=== PATIENT | male | born 1995 | race Caucasian/White ===

== ENCOUNTER 2021-06-21 12:37 | Emergency (ER) | payer SELFPAY ==
[2021-06-21] MEDS ORDERED: Lidocaine 1% 10 ML MDV INJECT ONE (13:16)
--- NOTE | 2021-06-21 15:31 | EDM.PDOC ---
ED HPI GENERAL MEDICAL PROBLEM - General Chief Complaint: Laceration Stated Complaint: FINGER LAC Time Seen by Provider: 06/21/21 13:31 Source of Information: Reports: Patient History Limitations: Reports: No Limitations - History of Present Illness INITIAL COMMENTS - FREE TEXT/NARRATIVE: 26-year-old male presents the emergency department with complaints of laceration noted to his left index and middle finger. This occurred at approximately 11:00 today while he was at work. The patient states he fell and caught his hand on a metal object on the ground. Patient states his tetanus is up-to-date. Right Hand Pain Score (Numeric/FACES): 3 - Related Data Allergies Allergy/AdvReac Type Severity Reaction Status Date / Time No Known Allergies Allergy Verified 06/21/21 13:03 Home Meds: Home Meds cephALEXin [Keflex] 500 mg PO QID #40 cap 06/21/21 [Rx] Past Medical History - Past Health History Medical/Surgical History: Denies Medical/Surgical History Social & Family History - Tobacco Use Tobacco Use Status *Q: Current Every Day Tobacco User Years of Tobacco use: 1 Packs/Tins Daily: 0.5 - Caffeine Use Caffeine Use: Reports: Coffee, Energy Drinks, Soda - Alcohol Use Days Per Week of Alcohol Use: 2 Number of Drinks Per Day: 2 Total Drinks Per Week: 4 - Recreational Drug Use Recreational Drug Use: No ED ROS GENERAL - Review of Systems Review Of Systems: Comprehensive ROS is negative, except as noted in HPI. ED EXAM, SKIN/RASH Exam: See Below Exam Limited By: No Limitations General Appearance: Alert, WD/WN, No Apparent Distress Ears: Normal External Exam, Hearing Grossly Normal Nose: Normal Inspection Throat/Mouth: Normal Inspection, Normal Lips, Normal Voice, No Airway Compromise Head: Atraumatic Neck: Normal Inspection, Supple Respiratory/Chest: No Respiratory Distress, No Accessory Muscle Use Cardiovascular: Normal Peripheral Pulses, Regular Rate, Rhythm GI/Abdominal: No Distention (Male) Exam: Deferred Rectal (Males) Exam: Normal Exam Back Exam: Normal Inspection, Full Range of Motion Extremities: Normal Capillary Refill, Other (CMS is positive to both second and third digits on the left hand). No: Normal Inspection (Lacerations noted to left palmar aspect of second and third fingers middle phalanx), Normal Range of Motion (Decreased range of motion noted on third finger at the PIP joint) Neurological: Alert, Oriented, Normal Cognition Psychiatric: Normal Affect, Normal Mood Skin: Warm, Dry, Normal Color, No Rash. No: Intact (Lacerations noted to left second and third fingers on the palmar aspect in the mid phalanx) Location, Skin: Upper Extremity, Left Lymphatic: No Adenopathy ED SKIN PROCEDURES - Laceration/Wound Repair Left Digit - 2nd (Index) Appearance: Superficial, Other ([place]-shaped) Distal NVT: Neuro & Vascular Intact, No Tendon Injury Anesthetic Type: Local Local Anesthesia - Lidocaine (Xylocaine): 1% Plain Local Anesthetic Volume: 2cc Exploration/Debridement/Repair: Wound Explored Closed with: Sutures Lac/Wound length In cm: 3 Suture Size: 4-0 # of Sutures: 8 Suture Type: Nylon, Interrupted Left Digit - 3rd (Middle) Appearance: Superficial, Other ([place] shaped) Distal NVT: Neuro & Vascular Intact, No Tendon Injury, Other (Patient is unable to bend at the PIP joint) Local Anesthesia - Lidocaine (Xylocaine): 1% Plain Local Anesthetic Volume: 3cc Saline Irrigation (cc's): 10 Exploration/Debridement/Repair: Wound Explored, No Foreign Material Found Closed with: Sutures Lac/Wound length In cm: 4.5 Suture Size: 4-0 # of Sutures: 9 Suture Type: Nylon, Interrupted Course - Vital Signs Text/Narrative:: 26-year-old male with lacerations noted to his left index and middle finger. This happened about 11:00 this morning while at work. Index finger has an approximate 3 cm C-shaped laceration noted on the middle phalanx on the palmar aspect. CMS is positive and patient has full range of motion noted to that digit. Patient has an approximately 4-1/2 cm laceration which is C-shaped noted on the middle phalanx on the palmar aspect. CMS is positive however patient is not able to bend this finger at the PIP joint. He is able to bend his middle finger at the knuckle. I have ordered lidocaine to repair the lacerations. Last Recorded V/S: Last Vital Signs Temp 98.0 F 06/21/21 13:01 Pulse 69 06/21/21 13:01 Resp 16 06/21/21 13:01 BP 143/75 H 06/21/21 13:01 Pulse Ox 98 06/21/21 13:01 - Orders/Labs/Meds Meds: Medications Discontinued Medications Generic Name Dose Route Start Last Admin Trade Name Kevon PRN Reason Stop Dose Admin Lidocaine HCl 10 ml 06/21/21 13:16 06/21/21 13:23 Lidocaine 1% 10 Ml Mdv INJECT 06/21/21 13:17 10 ml ONETIME ONE Administration - Re-Assessments/Exams Free Text/Narrative Re-Assessment/Exam: 06/21/21 15:47 Left hand was draped in sterile fashion and lacerations were repaired. CMS remains intact to index and middle finger on left hand. Once the area was anesthetized. I did inspect and there is no tendon involvement appreciated. Towards the end of suturing, the patient was able to have slight range of motion at the PIP joint. He states that this occurred last time he lacerated his index finger. I recommended that he follow-up with hand surgery and he states he is not willing to do that until he is done with his 10-day hitch at work. I did prescribe him Keflex 500 mg 4 times daily for 10 days to prevent infection. Departure - Departure Time of Disposition: 15:28 Disposition: Home, Self-Care 01 Condition: Good Clinical Impression: Laceration - Discharge Information Prescriptions: cephALEXin [Keflex] 500 mg PO QID #40 cap Instructions: Laceration Care, Adult, [id number] Referrals: PCP,None [Primary Care Provider] - Forms: ED Department Discharge Additional Instructions: You were seen in the emergency department today with lacerations noted to your left index and middle fingers. Lacerations were repaired with sutures. You may need to follow-up with a hand surgeon if you do not regain full range of motion to your middle finger. Recommend that you do this immediately when you get home if it has not resolved. I have sent a prescription for an antibiotic called Keflex to the pharmacy, [facility]. You will need to take 1 tab 4 times daily until gone. Be sure to complete this course of antibiotic to prevent infection. Wash the sutured area twice daily with mild soap such as Dial or Tyree's baby shampoo. Pat the area dry and apply a thin film of baci tracin and then put a dressing over the top. Stitches will need to come out in 10 days time. Sepsis Event Note (ED) - Focused Exam Vital Signs: Vital Signs Temp Pulse Resp BP Pulse Ox 06/21/21 13:01 98.0 F 69 16 143/75 H 98
== END 2021-06-21 15:45 | disposition home or self-care (01) ==
LOC: JD.ED 12:37
DX: S61.211A Laceration without foreign body of left index finger without damage to nail, initial encounter (principal); S61.213A Laceration without foreign body of left middle finger without damage to nail, initial encounter; Z72.0 Tobacco use; W23.0XXA Caught, crushed, jammed, or pinched between moving objects, initial encounter; Y99.0 Civilian activity done for income or pay
CPT/HCPCS: 12002; 99282-25; 99283